=== PATIENT | male | born 1975 | race Caucasian/White ===

== ENCOUNTER 2016-11-07 07:49 | Emergency (ER) | payer OTHER ==
[2016-11-07] MEDS ORDERED: DEXAMETHASONE 10 MG/ML VIAL PO STA (08:15)
[2016-11-07] MEDS ORDERED: DEXAMETHASONE 10 MG/ML VIAL ONE (08:24)
[2016-11-07] MEDS ORDERED: CHERRY SYRUP 10 ML UDC PO ONE (08:24)
== END 2016-11-07 09:20 | disposition home or self-care (01) ==
DX: K12.2 Cellulitis and abscess of mouth (principal)
CPT/HCPCS: 87070; 87430; 99282; 99283; A9270